=== PATIENT | female | born 1995 | race Caucasian/White ===

== ENCOUNTER 2019-12-21 13:55 | Emergency (ER) | payer OTHER ==
[~2019-12-21] VITALS: Ht 182.9 cm; Wt 68.6 kg
[2019-12-21] MEDS ORDERED: ONDANSETRON 2MG/ML, 2ML IVPush ONE (14:30)
[2019-12-21] MEDS ORDERED: SODIUM CHLORIDE FLUSH 10ML SYR IVF ONE (14:30)
[2019-12-21 14:31] LABS: BASOPHILS # (AUTO) 0.04 x10^3/uL (0-0.1); BASOPHILS % (AUTO) 0 % (0-1); EOSINOPHILS # (AUTO) 0.06 x10^3/uL (0-0.4); EOSINOPHILS % (AUTO) 1 % (1-7); LYMPHOCYTES # (AUTO) 1.52 x10^3/uL (1-3.4); LYMPHOCYTES % (AUTO) 12 % (22-44); MD NO; MEAN CORPUSCULAR HEMOGLOBIN 29.3 pg (27.0-34.8); MEAN CORPUSCULAR HGB CONC 33.4 g/dL (32.4-35.8); MEAN CORPUSCULAR VOLUME 87.7 fL (80-100); MEAN PLATELET VOLUME 9.2 fL (7.4-10.4); MONOCYTES # (AUTO) 0.61 x10^3/uL (0.2-0.8); MONOCYTES % (AUTO) 5 % (2-9); NEUTROPHILS % (AUTO) 82 % (42-75); PLATELET COUNT 181 x10^3/uL (130-400); RED BLOOD COUNT 3.77 x10^6/uL (3.82-5.3); RED CELL DISTRIBUTION WIDTH 14.7 % (9.6-15.2)
[2019-12-21] MEDS ORDERED: MORPHINE SULFATE 4 MG/ML, 1ML ONE ×2 (14:36→16:23)
[2019-12-21] MEDS ORDERED: ONDANSETRON 2MG/ML, 2ML ONE (14:36)
[2019-12-21 14:41] LABS: ALANINE AMINOTRANSFERASE 13 U/L (12-78); ALBUMIN 3.3 g/dL (3.4-5.0); ANION GAP 6 mmol/L (5-15); CALCIUM 8.3 mg/dL (8.5-10.1); CHLORIDE 112 mmol/L (98-107); CREATININE 0.74 mg/dL (0.55-1.02)
[2019-12-21 14:45] LABS: ALKALINE PHOSPHATASE 58 U/L (45-117); BILIRUBIN,TOTAL 0.5 mg/dL (0.2-1.0); TOTAL PROTEIN 6.6 g/dL (6.4-8.2)
[2019-12-21] MEDS: MORPHINE SULFATE 4 MG/ML, 1ML IVPush PRN ×2 (14:50→16:26)
--- NOTE | 2019-12-21 15:02 | NUR ---
Report from Cecily devries Straight cath ua obtained-walked to lab To Ultrasound at 1501p
--- NOTE | 2019-12-21 15:13 | NUR ---
pt presents to ED with c/o vag bleeding, since d&c 12/03 however it became severe last night, saturating 4 pads since that time. order for clean catch ua changed to straight cath ua by EDPA d/t continued vag bleeding, which is moderate at this time. straight cath ua obtained, walked to lab. bp and spo2 monitors in place. pt maintaining spo2 >95% on room air piv placed, pt medicated per emar for vag cramping. US called to notify pt ready for us. report givne to JEROME Kennedy who is to assume care.
[2019-12-21 15:15] LABS: MICROSCOPIC NOT IND
[2019-12-21 15:16] LABS: CULTURE INDICATED? NO
--- NOTE | 2019-12-21 16:28 | NUR ---
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
[2019-12-21 16:30] VITALS: BP 118/66
--- NOTE | 2019-12-21 17:15 | NUR ---
CRIMINAL PSYCHOLOGIST: Patient/Caregiver given discharge instructions and they have confirmed that they understand the instructions. Patient ambulatory with steady gait, no distress noted
== END 2019-12-21 17:16 | disposition home or self-care (01) ==
LOC: ED 14:27
DX: O03.6 Delayed or excessive hemorrhage following complete or unspecified spontaneous abortion (principal); D50.0 Iron deficiency anemia secondary to blood loss (chronic)
CPT/HCPCS: 36415; 76830; 80053; 81003; 84702; 85025; 96374; 96375; 96376; 99284; J2270; J2405